=== PATIENT | male | born 1935 | race Caucasian/White ===

== ENCOUNTER 2017-06-11 15:27 | Emergency (ER) | payer MEDICARE, BC ==
[~2017-06-11] VITALS: Ht 182.9 cm; Wt 80.7 kg
[~2017-06-11 15:27] MED LIST: ASPIRIN81 MG PO; CIPRO PO; COREG3.125 MG PO; DIOVAN HCT 160/1 TAB PO; DIOVAN PO; GLUCOPHAGE500 MG PO; IMDUR-ER30 M1 PO; LIPITOR80 MG PO; LORTAB 10/500 T1 TAB PO; LORTAB 7.5-5001 TAB; LORTAB 7.5-5001 TAB PO; LORTAB PO; NITROSTAT0.4 MG SL; NORVASC; NORVASC PO; PHENERGAN PO; PHENERGAN25 MG; PLAVIX PO; VICODIN 5/500 T1 TAB PO; ZESTRIL10 M1 PO; ZYLOPRIM PO
== END 2017-06-11 16:59 | disposition home or self-care (01) ==
LOC: CFTX 15:27 → CED 15:27 → CFTX 16:23
DX: S61.012A Laceration without foreign body of left thumb without damage to nail, initial encounter (principal); Z87.891 Personal history of nicotine dependence; I10 Essential (primary) hypertension; Z79.899 Other long term (current) drug therapy; Z79.82 Long term (current) use of aspirin; W26.8XXA Contact with other sharp object(s), not elsewhere classified, initial encounter; Y92.009 Unspecified place in unspecified non-institutional (private) residence as the place of occurrence of the external cause
CPT/HCPCS: 12001; 90471; 90715; 99283